=== PATIENT | female | born 1960 | race Caucasian/White ===

== ENCOUNTER 2020-02-23 11:06 | Day surgery (SDC) | payer BC ==
[~2020-02-23] VITALS: Ht 172.7 cm; Wt 120.8 kg
[2020-02-23] VITALS (368 sets, daily range): BP systolic 130–209; BP diastolic 60–86; PULSE 65–77; TEMP 98.2–98.8; O2SAT 96–100
[2020-02-23 11:54] LABS: HEMATOCRIT 40.5 % (37.0-47.0); HEMOGLOBIN 13.9 g/dl (12.5-16.0); MEAN CELL VOLUME 88 fl (80.0-100.0); MEAN CORPUSCULAR HEMOGLOBIN 30 pg (27.0-31.0); MEAN CORPUSCULAR HGB CONC 34 g/dl (33.0-37.0); MEAN PLATELET VOLUME 8.9 fl (7.4-10.4); PLATELET COUNT 264 K/mm3 (130-400); RED BLOOD COUNT 4.63 M/mm3 (4.10-5.30); REDCELL DISTRIBUTION WIDTH-CV 12.5 % (11.5-14.5)
[2020-02-23 12:06] LABS: CALCIUM 9.8 mg/dL (8.4-10.2); CREATININE, serum 0.92 (0.52-1.25); POTASSIUM 4.6 mmol/L (3.4-5.0)
[2020-02-23 12:07] LABS: PROTHROMBIN TIME 11.8 SECONDS (9.7-12.8)
[2020-02-23 12:09] LABS: PARTIAL THROMBOPLASTIN TIME 42.5 SECONDS (26.0-37.0)
[2020-02-23] MEDS ORDERED: MASON NATURAL500 MG PO (12:13)
[2020-02-23] MEDS ORDERED: THE MEDICINE S200 M2 PO (12:14)
[2020-02-23] MEDS ORDERED: NATURE'S BLEND600 M2 PO (12:14)
[2020-02-23] MEDS ORDERED: GLUCOPHAGE500 MG/TAB PO (12:15)
[2020-02-23] MEDS ORDERED: ASPIRIN E.C. 8181 MG PO (12:15)
[2020-02-23] MEDS ORDERED: ACCUPRIL20TAB PO (12:16)
[2020-02-23] MEDS ORDERED: ZOCOR 10MG10 MG PO (12:18)
[2020-02-23] MEDS ORDERED: LUNESTA 1MG TAB1 MG PO (12:19)
[2020-02-23] MEDS ORDERED: HYGROTON50 MG PO (12:20)
[2020-02-23] MEDS ORDERED: SYNTHROID0.175 MG PO (12:20)
[2020-02-23] MEDS ORDERED: COREG 25MG25 MG/TAB PO (12:21)
[2020-02-23] MEDS ORDERED: NORVASC 10MG10 MG PO (12:22)
[2020-02-23] MEDS ORDERED: CATAPRES 0.1MG0.1 MG PO (12:22)
[2020-02-23] MEDS ORDERED: ALDACTONE 25MG25 M1 PO (12:23)
[2020-02-23] MEDS ORDERED: CATAPRES-TTS 10.1 M1 TD (12:24)
[2020-02-23] MEDS ORDERED: NOVOLOG FLEX100 U/ML SQ (12:26)
[2020-02-23] MEDS ORDERED: LANTUS SOLOS100 U/ML SQ (12:27)
[2020-02-23] MEDS ORDERED: [UNRECOGNIZED DRUG - OTHER] TD (12:29)
[2020-02-23] MEDS ORDERED: COSENTYX P150 MG/1 M SQ (12:31)
--- NOTE | 2020-02-23 13:23 | NUR ---
SEE MERGE FOR MEDICATION ADMINISTRATION TIMES AND INTRA AND POST SEDATION ASSESSMENTS.
--- NOTE | 2020-02-23 15:15 | NUR ---
Arrives to room 12 acc by staff, connected to monitor and storage bin tender, denies pain/SOB RT notified of EKG
[2020-02-24] VITALS (466 sets, daily range): BP systolic 134–161; BP diastolic 38–64; PULSE 70–72; TEMP 97.9–98.4; O2SAT 79–100
--- NOTE | 2020-02-24 00:21 | NUR ---
PT SITTING IN BED, DENIES AND PAIN, DISCOMFORT, OR DOA. TR BAND REMAINS IN PLACE ON RIGHT RADIAL SITE. DINIES ANY NUMBNESS OR TINGLING, FINGERS BLANCHABLE AND WARM. PT STATES SHE NOTES A MILD SWELLING OR RIGHT HAND BUT NO OTHER DISCOMFORT. WILL CONTINUE TO EXPELL AIR , NO BLEEDING OR BRUISING NOTED AT THIS TIME. PT REMAIN ON 1/2NS AND NITRO GTT PER ORDERS. WILL CONTINUE TO MONITOR AND UPDATE PROVIDERS NEEDED.
--- NOTE | 2020-02-24 02:00 | NUR ---
3ML REMOVED FROM TR-BAND, NO BLEEDING NOTED
[2020-02-24 06:50] LABS: BASO # 0.1 (0.0-0.2); BASO % 0.7 % (0.0-2.0); EOS # 0.3 (0.0-0.7); EOS % 3.7 % (0-4.0); GRAN # 5.3 (1.4-6.5); GRAN % 66.6 % (42.2-75.2); HEMATOCRIT 37.1 % (37.0-47.0); HEMOGLOBIN 12.8 g/dl (12.5-16.0); LYMPH # 1.6 (1.2-3.4); LYMPH % 20.2 % (20.0-51.0); MEAN CELL VOLUME 87 fl (80.0-100.0); MEAN CORPUSCULAR HEMOGLOBIN 30 pg (27.0-31.0); MEAN CORPUSCULAR HGB CONC 35 g/dl (33.0-37.0); MEAN PLATELET VOLUME 9.2 fl (7.4-10.4); MONO # 0.7 (0.1-0.6); MONO % 8.6 % (1.7-9.3); PLATELET COUNT 240 K/mm3 (130-400); RED BLOOD COUNT 4.29 M/mm3 (4.10-5.30); REDCELL DISTRIBUTION WIDTH-CV 12.4 % (11.5-14.5)
[2020-02-24 07:07] LABS: CALCIUM 9.2 mg/dL (8.4-10.2); CREATININE, serum 0.9 (0.52-1.25); POTASSIUM 3.9 mmol/L (3.4-5.0)
--- NOTE | 2020-02-24 08:42 | NUR ---
Pt assessment complete. Pt is sitting up on the side of the bed upon entry, she is A/O x4. States she did not get much sleep last night. Denies any pain. No SOB. Breathing is even and unlabored on RA. SIte to R radial CDI, band and wrist board removed, bandaid placed on site. Pt aware of RUE restrictions. POC discussed with patient who verbalizes understanding. No needs at this time. Call light within reach.
[2020-02-24] MEDS ORDERED: BRILINTA90 MG PO (09:20)
[2020-02-24] MEDS ORDERED: ZOCOR 40MG40 MG PO (09:22)
--- NOTE | 2020-02-24 10:42 | NUR ---
Discharge paperwork and instructions reviewed with patient, all questions answered at this time. R radial site CDI, awaiting ride at this time.
--- NOTE | 2020-02-24 11:46 | NUR ---
IV to [facility] dc'd catheter intact. Pt wheeled out at this time.
== END 2020-02-24 12:00 | disposition home or self-care (01) ==
LOC: COL.CAR 11:06 → EU 15:21 → COL.CAR 02-24 12:00
PROVIDERS: Internal Medicine Cardiovascular Disease
DX: I25.10 Atherosclerotic heart disease of native coronary artery without angina pectoris (principal); I25.110 Atherosclerotic heart disease of native coronary artery with unstable angina pectoris; I10 Essential (primary) hypertension; E78.5 Hyperlipidemia, unspecified; E07.9 Disorder of thyroid, unspecified; E10.9 Type 1 diabetes mellitus without complications; L40.9 Psoriasis, unspecified; Z82.49 Family history of ischemic heart disease and other diseases of the circulatory system; Z79.899 Other long term (current) drug therapy; Z79.82 Long term (current) use of aspirin; Z79.4 Long term (current) use of insulin
CPT/HCPCS: OP; C9600; J0583; J1644; J1815; J2405; J3010

== ENCOUNTER → 2020-05-13 | Outpatient (CLI) | payer BC ==
[~2020-05-13] MED LIST: ACCUPRIL20TAB PO; ALDACTONE 25MG25 M1 PO; ASPIRIN E.C. 8181 MG PO; BRILINTA90 MG PO; CATAPRES 0.1MG0.1 MG PO; CATAPRES-TTS 10.1 M1 TD; COREG 25MG25 MG/TAB PO; COSENTYX P150 MG/1 M SQ; GLUCOPHAGE500 MG/TAB PO; HYGROTON50 MG PO; LANTUS SOLOS100 U/ML SQ; LUNESTA 1MG TAB1 MG PO; MASON NATURAL500 MG PO; NATURE'S BLEND600 M2 PO; NORVASC 10MG10 MG PO; NOVOLOG FLEX100 U/ML SQ; SYNTHROID0.175 MG PO; THE MEDICINE S200 M2 PO; ZOCOR 10MG10 MG PO; ZOCOR 40MG40 MG PO; [UNRECOGNIZED DRUG - OTHER] TD
== END ==
LOC: COL.RAD 05-03 08:30
DX: Z01.812 Encounter for preprocedural laboratory examination (principal); I15.0 Renovascular hypertension; I70.0 Atherosclerosis of aorta; I70.202 Unspecified atherosclerosis of native arteries of extremities, left leg; Z90.710 Acquired absence of both cervix and uterus; Z90.49 Acquired absence of other specified parts of digestive tract
CPT/HCPCS: Q9967